=== PATIENT | female | born 1975 | race Caucasian/White ===

== ENCOUNTER → 2016-04-30 | Outpatient (CLI) | payer OTHER ==
[2015-05-18 22:39] VITALS: BP 137/77
[~2016-04-30] MED LIST: DOXY100T PO; HYDR-971 PO; NAPR550T2 PO; PREN1TAB58 PO; methergine PO
[2016-04-30 09:08] LABS: BASO % 1 % (0-3); EOS % 1 % (0-3); HEMATOCRIT 44.3 % (36.0-47.0); HEMOGLOBIN 14.8 g/dL (12.0-15.5); LYMPH # 1.8 x10^3/uL (1.0-4.8); LYMPH % 25 % (24-48); MEAN CORPUSCULAR HEMOGLOBIN 30 pg (25-35); MEAN CORPUSCULAR HGB CONC 34 g/dL (31-37); MEAN CORPUSCULAR VOLUME 91 fL (79-100); MONO % 6 % (0-9); NEUT % 68 % (31-73); PLATELET COUNT 193 x10^3/uL (140-400)
[2016-04-30 09:11] LABS: BILIRUBIN,URINE NEGATIVE (NEG); GLUCOSE,URINE NEGATIVE (NEG); NITRITE,URINE NEGATIVE (NEG); PH,URINE 5.5; PROTEIN,URINE NEGATIVE (NEG-TRACE); UROBILINOGEN,URINE 0.2 mg/dL (0.2 mg/dL)
[2016-04-30 09:14] LABS: WHITE BLOOD COUNT 7.4 x10^3/uL (4.0-11.0)
[2016-04-30 09:36] LABS: BACTERIA,URINE FEW /HPF (0-FEW); RBC,URINE 0 /HPF (0-2); SQUAMOUS EPITHELIAL CELL,UR MANY /LPF; WBC,URINE OCC /HPF (0-4)
[2016-04-30 09:40] LABS: ALBUMIN 3.9 g/dL (3.4-5.0); CALCIUM 8.9 mg/dL (8.5-10.1); CREATININE 0.9 mg/dL (0.6-1.0); DIRECT BILIRUBIN 0.1 mg/dL (0.0-0.2); GFR 69.7; POTASSIUM 4.1 mmol/L (3.5-5.1); TOTAL BILIRUBIN 0.5 mg/dL (0.2-1.0)
[2016-04-30 09:42] LABS: CHOLESTEROL/HDL RATIO 1.8
[2016-04-30 09:48] LABS: FREE T4 0.96 ng/dL (0.76-1.46)
[2016-04-30 19:13] LABS: FSH 5.7 mIU/mL (.); LUTEINIZING HORMONE 2.3 mIU/mL (.); PROGESTERONE 0.9 ng/mL (.)
== END | disposition home or self-care (01) ==
LOC: LAB 08:33
PROVIDERS: ATTEND Nurse Practitioner Family
DX: F90.9 Attention-deficit hyperactivity disorder, unspecified type (principal)
CPT/HCPCS: 36415; 80048; 80061; 80076; 81001; 83001; 83002; 84144; 84402; 84403; 84439; 84443; 85027; 87086

== ENCOUNTER → 2016-12-03 | Outpatient (CLI) | payer OTHER ==
[2015-05-18 22:39] VITALS: BP 137/77
[~2016-12-03] MED LIST changes: +NAPR-677 PO; -NAPR550T2 PO
[2016-12-04 13:17] LABS: THYROXINE 7.8 ug/dL (4.5-12.0)
== END | disposition home or self-care (01) ==
LOC: LAB 15:07
PROVIDERS: ATTEND Nurse Practitioner Family
DX: R94.6 Abnormal results of thyroid function studies (principal)
CPT/HCPCS: 36415; 84436; 84443; 84480; 86376

== ENCOUNTER → 2017-05-02 | Outpatient (CLI) | payer OTHER | END | disposition home or self-care (01) | LOC: KCIC MAMMO 08:09 | DX: Z12.31 Encounter for screening mammogram for malignant neoplasm of breast (principal); N63.20 Unspecified lump in the left breast, unspecified quadrant | CPT/HCPCS: 77063; 77067 ==

== ENCOUNTER → 2017-05-06 | Outpatient (CLI) | payer OTHER | END | disposition home or self-care (01) | LOC: US 14:41 | DX: N63.21 Unspecified lump in the left breast, upper outer quadrant (principal) | CPT/HCPCS: 76641 ==

== ENCOUNTER → 2017-05-16 | Outpatient (CLI) | payer OTHER | END | disposition home or self-care (01) | LOC: US 13:31 | DX: N60.22 Fibroadenosis of left breast (principal); N60.42 Mammary duct ectasia of left breast; N60.02 Solitary cyst of left breast; Z98.890 Other specified postprocedural states; K08.409 Partial loss of teeth, unspecified cause, unspecified class | CPT/HCPCS: 19081; 19083; 76942; 77065; 88305; C1713 ==

== ENCOUNTER → 2018-01-14 | Outpatient (CLI) | payer OTHER ==
[2015-05-18 22:39] VITALS: BP 137/77
--- NOTE | 2018-01-14 09:25 | RAD ---
DATE: 01/14/2018 EXAM: DIGITAL DIAGNOSTIC LT HISTORY: 6 month follow-up breast biopsy COMPARISON: 05/16/2017, 05/02/2017 This study was interpreted with the benefit of Computerized Aided Detection (CAD). Breast Density: HETERO The breast parenchyma is heterogenously dense, which could reduce sensitivity of mammography. Breast parenchyma level C. FINDINGS: The fibroglandular pattern is unchanged. There is a breast biopsy marker in the upper outer quadrant related to a stable area of relatively increased density. That breast biopsy yielded benign findings. No new or enlarging breast densities are seen. No suspicious microcalcifications are evident. IMPRESSION: Stable left mammograms without evidence of malignancy. Bilateral mammography in 6 months and then at routine yearly intervals is suggested. BI-RADS CATEGORY: 2 BENIGN FINDING(S) RECOMMENDED FOLLOW-UP: 12M 12 MONTH FOLLOW-UP PQRS compliance statement: Patient information was entered into a reminder system with a target due date for the next mammogram. Mammography is a sensitive method for finding small breast cancers, but it does not detect them all and is not a substitute for careful clinical examination. A negative mammogram does not negate a clinically suspicious finding and should not result in delay in biopsying a clinically suspicious abnormality. "Our facility is accredited by the [employer] Mammography Program."
== END | disposition home or self-care (01) ==
LOC: MAMMO 07:31
PROVIDERS: ATTEND Physician Assistant Medical
DX: R92.8 Other abnormal and inconclusive findings on diagnostic imaging of breast (principal)
CPT/HCPCS: 77065